=== PATIENT | male | born 1990 | race African-American/Black ===

== ENCOUNTER 2017-11-08 07:06 | Emergency (ER) | payer SELFPAY ==
[~2017-11-08] VITALS: Ht 177.8 cm; Wt 106.0 kg
[2017-11-08] MEDS ORDERED: SODIUM CHLORIDE 0.9% 1,000 ML IV ONE (07:32)
[2017-11-08] MEDS ORDERED: MORPHINE SULFATE 4 MG/ML CPJ (NOT FOR IM USE) IV STA (07:32)
[2017-11-08] MEDS ORDERED: ONDANSETRON HCL 4MG/2ML VIAL IV STA (07:32)
[2017-11-08] MEDS ORDERED: CEFAZOLIN 1000MG PREMIX 50 ML IV ONE (07:45)
[2017-11-08] MEDS ORDERED: TETANUS AND DIPHTHERIA TOX/PF 0.5ML SYR (ADULT) IM ONE (07:45)
[2017-11-08 08:17] LABS: BASOPHILS % 0.6 % (0.0-2.0); EOSINOPHILS % 10.6 % (0.0-5.0); HEMATOCRIT. 44.5 % (42.0-52.0); LYMPHOCYTES % 38.5 % (20.0-50.0); MEAN CORPUSCULAR HEMOGLOBIN 29.1 pg (28.0-32.0); MEAN CORPUSCULAR VOLUME 86.2 fL (80.0-94.0); MONOCYTES % 7.1 % (2.0-8.0); NEUTROPHILS % 43.2 % (40.0-76.0); PLATELET 244 x1000/uL (130-400); RED BLOOD CELL COUNT 5.16 mill/uL (4.7-6.1); RED CELL DISTRIBUTION WIDTH 14.7 % (11.6-14.6)
[2017-11-08 08:20] LABS: CHLORIDE 107 mEq/L (98-107)
[2017-11-08 08:22] LABS: PARTIAL THROMBOPLASTIN TIME 24.5 sec (23.4-31.0); PROTHROMBIN TIME 10.3 sec (9.4-11.6)
[2017-11-08] MEDS ORDERED: ONDANSETRON HCL 4MG/2ML VIAL IV ONE ×2 (10:00→14:15)
[2017-11-08] MEDS ORDERED: MORPHINE SULFATE 4 MG/ML CPJ (NOT FOR IM USE) IV ONE ×2 (10:00→14:15)
[2017-11-08] MEDS ORDERED: TETANUS, DIPHTHERIA, PERTUSSIS VAC/PF 0.5ML (>7YR OLD) IM ONE (10:00)
[2017-11-08 15:01] VITALS: BP 114/80
== END 2017-11-08 15:19 | disposition short-term general hospital (02) ==
LOC: ER 07:56
DX: T20.20XA Burn of second degree of head, face, and neck, unspecified site, initial encounter (principal); T23.202A Burn of second degree of left hand, unspecified site, initial encounter; T23.201A Burn of second degree of right hand, unspecified site, initial encounter; T20.10XA Burn of first degree of head, face, and neck, unspecified site, initial encounter; T23.101A Burn of first degree of right hand, unspecified site, initial encounter; T23.102A Burn of first degree of left hand, unspecified site, initial encounter; F17.200 Nicotine dependence, unspecified, uncomplicated; F12.10 Cannabis abuse, uncomplicated; W40.1XXA Explosion of explosive gases, initial encounter; Y93.G3 Activity, cooking and baking; Y92.018 Other place in single-family (private) house as the place of occurrence of the external cause
CPT/HCPCS: 16000; 36415; 80053; 83690; 85025; 85610; 85730; 90471; 90715; 93005; 96361; 96365; 96375; 96376; 99285; J0690; J2270; J2405; J7030; 90714

== ENCOUNTER 2021-05-08 11:06 | Emergency (ER) | payer OTHER, MEDICAID ==
[~2021-05-08] VITALS: Ht 167.6 cm; Wt 81.0 kg
[2021-05-08] MEDS ORDERED: HYDROCODONE/ACETAMINOPHEN 10/325MG TABLET PO ONE (11:45)
[2021-05-08 12:47] VITALS: BP 125/74
== END 2021-05-08 15:12 ==
LOC: ER 11:47
DX: M79.661 Pain in right lower leg (principal); Z87.81 Personal history of (healed) traumatic fracture; Z98.890 Other specified postprocedural states
CPT/HCPCS: 99283